=== PATIENT | female | born 1990 | race Hispanic/Latino ===

== ENCOUNTER 2018-08-09 21:19 | Emergency (ER) | payer OTHER ==
[~2018-08-09] VITALS: Ht 180.3 cm; Wt 142.9 kg
--- OUTSIDE RECORDS SUMMARY | 2018-08-09 21:22 | XMS REPORT | Clinical Summary ---
Author Author [facility] Organization [facility] Address Unknown Phone Unavailable Care Team Providers Care Store Leader Name Role Phone PCP Unavailable Allergies No Known Allergies Medications No known medications Active Problems Problem Noted Date Acute left ankle pain 07/20/2015 Back pain with radiation 05/13/2010 UTI (lower urinary tract infection) 05/13/2010 Encounters Care Team Description Date Type Specialty Alan Mcmullen MD 04/06/2018 Emergency Emergency Medicine 04/06/2018 Travel after 04/15/2017 Social History Date Tobacco Use Types Packs/Day Years Used Never Assessed Sex Assigned at Date Recorded Not on file Industry Job Start Date Occupation Not on file Not on file Not on file Travel End Travel History Travel Start No recent travel history available. Last Filed Vital Signs Time Taken Vital Sign Reading 04/06/2018 2:50 PM QUALITY ASSURANCE MONITOR BODY Blood Pressure 120/81 04/06/2018 2:50 PM QUALITY ASSURANCE MONITOR BODY Pulse 78 04/06/2018 2:50 PM QUALITY ASSURANCE MONITOR BODY Temperature 36.4 C (97.6 F) 04/06/2018 2:50 PM QUALITY ASSURANCE MONITOR BODY Respiratory Rate 16 04/06/2018 2:50 PM QUALITY ASSURANCE MONITOR BODY Oxygen Saturation 100% - Inhaled Oxygen - Concentration 04/06/2018 2:50 PM QUALITY ASSURANCE MONITOR BODY Weight 147 kg (324 lb) - Height - - Body Mass Index - Plan of Treatment Health Maintenance Due Date Last Done Comments Cervical Cancer Scrn (3 2013 Yrs) IMM Influenza Seasonal 12/06/2017 Oct to May (>/=19 yrs) Results Not on fileafter 04/15/2017 Insurance Type Payer Benefit Subscriber ID Effective Phone Address Plan / Dates Group [facility] SELF-PAY [facility] xxxxxxxxx 2015- [phone] [address] [place] [address]
--- OUTSIDE RECORDS SUMMARY | 2018-08-09 21:22 | XMS REPORT | Clinical Summary ---
Author Author [facility] Organization [facility] Address Unknown Phone Unavailable Care Team Providers Care Mud Worker Name Role Phone PCP Unavailable Allergies No Known Allergies Medications No known medications Active Problems Problem Noted Date Acute left ankle pain 07/20/2015 Back pain with radiation 05/13/2010 UTI (lower urinary tract infection) 05/13/2010 Encounters Care Team Description Date Type Specialty Alan Mcmullen MD 04/06/2018 Emergency Emergency Medicine 04/06/2018 Travel after 04/26/2017 Social History Date Tobacco Use Types Packs/Day Years Used Never Assessed Sex Assigned at Date Recorded Not on file Industry Job Start Date Occupation Not on file Not on file Not on file Travel End Travel History Travel Start No recent travel history available. Last Filed Vital Signs Time Taken Vital Sign Reading 04/06/2018 2:50 PM COFFEE ATTENDANT Blood Pressure 120/81 04/06/2018 2:50 PM COFFEE ATTENDANT Pulse 78 04/06/2018 2:50 PM COFFEE ATTENDANT Temperature 36.4 C (97.6 F) 04/06/2018 2:50 PM COFFEE ATTENDANT Respiratory Rate 16 04/06/2018 2:50 PM COFFEE ATTENDANT Oxygen Saturation 100% - Inhaled Oxygen - Concentration 04/06/2018 2:50 PM COFFEE ATTENDANT Weight 147 kg (324 lb) - Height - - Body Mass Index - Plan of Treatment Health Maintenance Due Date Last Done Comments Cervical Cancer Scrn (3 2013 Yrs) IMM Influenza Seasonal 12/06/2017 Oct to May (>/=19 yrs) Results Not on fileafter 04/26/2017 Insurance Type Payer Benefit Subscriber ID Effective Phone Address Plan / Dates Group [facility] SELF-PAY [facility] xxxxxxxxx 2015- [phone] [address] [place] [address] [employer] SELF-PAY [facility] PLAN xxxxxx 2018-8 [address] [place] [address] (Home) [place] [address]
--- OUTSIDE RECORDS SUMMARY | 2018-08-09 21:22 | XMS REPORT | Continuity of Care Document ---
Author Author [facility] Interface Address Unknown Phone Unavailable Problems Problem Status Onset Date Classification Date Reported Comments Source Acute left ankle pain Active 07/20/2015 04/28/2018 [facility] Back pain with radiation Active 05/13/2010 04/28/2018 [facility] UTI Active 05/13/2010 04/28/2018 [facility] Medications Medication Details Route Status Patient Instructions Ordering Provider Order Date Source Allergies, Adverse Reactions, Alerts Substance Category Reaction Severity Reaction type Status Date Reported Comments Source Immunizations Immunization Date Given Site Status Last Updated Comments Source Results Order Name Results Value Reference Range Date Interpretation Comments Source Vital Signs Vital Sign Value Date Comments Source Systolic (mm Hg) 120 04/06/2018 [facility] Diastolic (mm Hg) 81 04/06/2018 [facility] Heart Rate 78 04/06/2018 [facility] Temperature Oral (F) 36.44 Lora 04/06/2018 [facility] Respitory Rate 16 04/06/2018 [facility] Weight 146.965 04/06/2018 [facility] Encounters Location Location Details Encounter Type Encounter Number Reason For Visit Attending Provider ADM Date DC Date Status Source Travel [id number] 04/06/2018 [facility] Emergency [id number] Alan Mcmullen MD 04/06/2018 04/06/2018 [facility] Procedures Procedure Code Date Perfomer Comments Source
--- OUTSIDE RECORDS SUMMARY | 2018-08-09 21:22 | XMS REPORT | Clinical Summary ---
Author Author [facility] Organization [facility] Address Unknown Phone Unavailable Care Team Providers Care Director [employer] Name Role Phone PCP Unavailable Allergies No Known Allergies Medications No known medications Active Problems Problem Noted Date Acute left ankle pain 07/20/2015 Back pain with radiation 05/13/2010 UTI (lower urinary tract infection) 05/13/2010 Encounters Care Team Description Date Type Specialty Alan Mcmullen MD 04/06/2018 Emergency Emergency Medicine 04/06/2018 Travel after 04/11/2017 Social History Date Tobacco Use Types Packs/Day Years Used Never Assessed Sex Assigned at Date Recorded Not on file Industry Job Start Date Occupation Not on file Not on file Not on file Travel End Travel History Travel Start No recent travel history available. Last Filed Vital Signs Time Taken Vital Sign Reading 04/06/2018 2:50 PM SPEAKER WIRER Blood Pressure 120/81 04/06/2018 2:50 PM SPEAKER WIRER Pulse 78 04/06/2018 2:50 PM SPEAKER WIRER Temperature 36.4 C (97.6 F) 04/06/2018 2:50 PM SPEAKER WIRER Respiratory Rate 16 04/06/2018 2:50 PM SPEAKER WIRER Oxygen Saturation 100% - Inhaled Oxygen - Concentration 04/06/2018 2:50 PM SPEAKER WIRER Weight 147 kg (324 lb) - Height - - Body Mass Index - Plan of Treatment Health Maintenance Due Date Last Done Comments Cervical Cancer Scrn (3 2013 Yrs) IMM Influenza Seasonal 12/06/2017 Oct to May (>/=19 yrs) Results Not on fileafter 04/11/2017 Insurance Type Payer Benefit Subscriber ID Effective Phone Address Plan / Dates Group [facility] SELF-PAY [facility] xxxxxxxxx 2015- [phone] [address] [place] [address]
--- OUTSIDE RECORDS SUMMARY | 2018-08-09 21:22 | XMS REPORT | Clinical Summary ---
Author Author [facility] Organization [facility] Address Unknown Phone Unavailable Care Team Providers Care Electric Meter Installer Name Role Phone PCP Unavailable Allergies Not on File Medications Not on file Active Problems Not on file Social History Date Tobacco Use Types Packs/Day Years Used Never Assessed Sex Assigned at Date Recorded Not on file Industry Job Start Date Occupation Not on file Not on file Not on file Travel End Travel History Travel Start No recent travel history available. Last Filed Vital Signs Not on file Plan of Treatment Not on file Results Not on fileafter 08/08/2017
--- OUTSIDE RECORDS SUMMARY | 2018-08-09 21:22 | XMS REPORT | Clinical Summary ---
Author Author [facility] Organization [facility] Address Unknown Phone Unavailable Care Team Providers Care Makeup Artist Name Role Phone PCP Unavailable Allergies No Known Allergies Medications No known medications Active Problems Problem Noted Date Acute left ankle pain 07/20/2015 Back pain with radiation 05/13/2010 UTI (lower urinary tract infection) 05/13/2010 Encounters Care Team Description Date Type Specialty Alan Mcmullen MD 04/06/2018 Emergency Emergency Medicine 04/06/2018 Travel after 08/08/2017 Social History Date Tobacco Use Types Packs/Day Years Used Never Assessed Sex Assigned at Date Recorded Not on file Industry Job Start Date Occupation Not on file Not on file Not on file Travel End Travel History Travel Start No recent travel history available. Last Filed Vital Signs Reading Time Taken Comments Vital Sign 120/81 04/06/2018 2:50 PM LAUNDRY ROOM ATTENDANT Blood Pressure 78 04/06/2018 2:50 PM LAUNDRY ROOM ATTENDANT Pulse 36.4 C (97.6 F) 04/06/2018 2:50 PM LAUNDRY ROOM ATTENDANT Temperature 16 04/06/2018 2:50 PM LAUNDRY ROOM ATTENDANT Respiratory Rate 100% 04/06/2018 2:50 PM LAUNDRY ROOM ATTENDANT Oxygen Saturation - - Inhaled Oxygen Concentration 147 kg (324 lb) 04/06/2018 2:50 PM LAUNDRY ROOM ATTENDANT Weight - - Height - - Body Mass Index Plan of Treatment Health Maintenance Due Date Last Done Comments Cervical Cancer Scrn (3 2013 Yrs) IMM Influenza Seasonal 12/06/2018 Oct to May (>/=19 yrs) Results Not on fileafter 08/08/2017 Insurance Type Payer Benefit Subscriber ID Effective Phone Address Plan / Dates Group [facility] SELF-PAY SELF-PAY xxxxxxxxx 2015- [phone] [address] [address] [facility] SELF-PAY SELF-PAY xxxxxx 2018-9 [address] [place] [address] (Home) [place] [address]
--- OUTSIDE RECORDS SUMMARY | 2018-08-09 21:22 | XMS REPORT ---
[facility] Address Unknown Phone Unavailable Care Team Providers Care Basting Machine Operator Name Role Phone HILLARY CARTER PP Unavailable Breanna CARTER Unavailable Unavailable AFUWAPE, LUKUMAN Unavailable Unavailable REBECA, IVELISSE Unavailable Unavailable Payers Payer Name Policy Type Policy Number Effective Date Expiration Date Problems This patient has no known problems. Allergies, Adverse Reactions, Alerts Allergy Name Allergy Type Status Severity Reaction(s) Onset Date Inactive Date Treating Clinician Comments No Known Allergies DA Active U 2013-11-28 00:00:00 Medications This patient has no known medications. Encounters Start Date/Time End Date/Time Encounter Type Admission Type Attending Clinicians Care Facility Care Department Encounter ID 2018-04-06 15:26:54 2018-04-06 15:26:54 Emergency [facility] MED [id number] 2017-06-28 09:38:00 2017-06-28 09:38:00 Outpatient [facility] MED [id number] 2017-06-06 00:01:00 2017-06-06 00:01:00 Outpatient [facility] [id number] 2017-06-06 00:01:00 2017-06-06 00:01:00 Outpatient [facility] [id number] 2017-05-14 08:21:00 2017-05-14 08:21:00 Inpatient [facility] MED [id number] 2017-05-11 20:50:00 2017-05-11 20:50:00 Emergency [facility] MED [id number] 2017-05-08 04:01:2017-05-08 04:01:00 Inpatient [facility] [id number] 2017-05-06 00:01:00 2017-05-06 00:01:00 Outpatient [facility] [id number] 2017-05-06 00:01:00 2017-05-06 00:01:00 Outpatient [facility] [id number] 2017-04-22 01:16:00 2017-04-22 01:16:00 Emergency C [facility] [id number] 2017-04-17 13:02:00 2017-04-17 13:02:00 Emergency Eliseo CARTER [facility] [id number] 2017-04-08 00:01:00 2017-04-08 00:01:00 Outpatient [facility] [id number] 2017-04-07 16:20:00 2017-04-07 16:20:00 Emergency Eliseo [facility] [id number] 2017-03-15 13:12:00 2017-03-15 13:12:00 Outpatient [facility] [id number] 2017-02-16 02:51:00 2017-02-16 02:51:00 Emergency Eliseo CARTER [facility] [id number] 2017-02-05 00:01:00 2017-02-05 00:01:00 Outpatient C [facility] [id number] 2017-01-15 10:40:00 2017-01-15 10:40:00 Outpatient C [facility] [id number] 2017-01-15 08:19:00 2017-01-15 08:19:00 Emergency C [facility] [id number] Results Test Description Test Time Test Comments Text Results Atomic Results Result Comments TROPONIN I RAPID 2018-06-23 09:42:00 TROPONIN I RAPID (test code=TROPIRAP) 0.00 ng/mL <0.08 Please Note New Reference Range 0.00-0.079 ng/mL - Negative>or=0.08 ng/mL - Positive The use of serial sampling and testing protocol is arecommended practice.An elevated troponin level alone is often not sufficient fordiagnosis of myocardial infarction. Troponin results obtained by different assays may vary.Evaluation of the extent of myocardial damage based onincrease of troponin would be valid only if similarmethodology is used. BASIC METABOLIC [id number] 22:33:00* Test Item Value Reference Range Comments SODIUM (test code=NA) 139 mmol/L 136-145 POTASSIUM (test code=K) 3.9 mmol/L 3.5-5.1 CHLORIDE (test code=CL) 109.0 mmol/L 98-107 CARBON DIOXIDE (test code=CO2) 23.0 mmol/L 21-32 ANION GAP (test code=GAP) 10.9 10-20 GLUCOSE (test code=GLU) 130 mg/dL 74-106 BLOOD UREA NITROGEN (test code=BUN) 11 mg/dL 7-18 GLOMERULAR FILTRATION RATE (test code=GFR) > 60 mL/min >=60 Estimated GFR by using Modified MDRD formula.Chronic kidney disease is defined as either kidney damageor GFR <60 mL/min/1.73 m2 for >3 months. CREATININE (test code=CREAT) 0.80 mg/dL 0.55-1.02 Note change in reference range due to change in reagent. BUN/CREATININE RATIO (test code=BUN/CREA) 13.8 10-20 CALCIUM (test code=CA) 8.9 mg/dL 8.5-10.1 HCG SERUM [id number] 22:33:00* Test Item Value Reference Range Comments HCG SERUM QUAL (test code=HCGQL) NEGATIVE NEGATIVE This HCGQL test is NOT applicable for MALE patients.Check with nurse about probable order error.If Tumor Marker Test needed, nurse should order test "HCGTU"(Test #550.74469) [id number] 22:33:00* Test Item Value Reference Range Comments TROPONIN-I (test code=TROPI) <0.015 ng/mL 0-0.045 BASIC METABOLIC [id number] 22:30:00* Test Item Value Reference Range Comments SODIUM (test code=NA) 139 mmol/L 136-145 POTASSIUM (test code=K) 3.9 mmol/L 3.5-5.1 CHLORIDE (test code=CL) 109.0 mmol/L 98-107 CARBON DIOXIDE (test code=CO2) mmol/L 21-32 ANION GAP (test code=GAP) 10-20 GLUCOSE (test code=GLU) mg/dL 74-106 BLOOD UREA NITROGEN (test code=BUN) mg/dL 7-18 GLOMERULAR FILTRATION RATE (test code=GFR) mL/min >=60 CREATININE (test code=CREAT) mg/dL 0.55-1.02 BUN/CREATININE RATIO (test code=BUN/CREA) 10-20 CALCIUM (test code=CA) 8.9 mg/dL 8.5-10.1 HCG SERUM [id number] 22:30:00* Test Item Value Reference Range Comments HCG SERUM QUAL (test code=HCGQL) NEGATIVE NEGATIVE This HCGQL test is NOT applicable for MALE patients.Check with nurse about probable order error.If Tumor Marker Test needed, nurse should order test "HCGTU"(Test #550.70567) [id number] 22:30:00* Test Item Value Reference Range Comments TROPONIN-I (test code=TROPI) ng/mL 0-0.045 BASIC METABOLIC [id number] 22:25:00* Test Item Value Reference Range Comments SODIUM (test code=NA) 139 mmol/L 136-145 POTASSIUM (test code=K) 3.9 mmol/L 3.5-5.1 CHLORIDE (test code=CL) 109.0 mmol/L 98-107 CARBON DIOXIDE (test code=CO2) mmol/L 21-32 ANION GAP (test code=GAP) 10-20 GLUCOSE (test code=GLU) mg/dL 74-106 BLOOD UREA NITROGEN (test code=BUN) mg/dL 7-18 GLOMERULAR FILTRATION RATE (test code=GFR) mL/min >=60 CREATININE (test code=CREAT) mg/dL 0.55-1.02 BUN/CREATININE RATIO (test code=BUN/CREA) 10-20 CALCIUM (test code=CA) 8.9 mg/dL 8.5-10.1 HCG SERUM [id number] 22:25:00* Test Item Value Reference Range Comments HCG SERUM QUAL (test code=HCGQL) NEGATIVE [id number] 22:25:00* Test Item Value Reference Range Comments TROPONIN-I (test code=TROPI) ng/mL 0-0.045 CBC W/O [id number] 22:18:00* Test Item Value Reference Range Comments WHITE BLOOD CELL (test code=WBC) 9.4 K/mm3 4.5-12.5 RED BLOOD CELL (test code=RBC) 4.11 mill/mm3 3.7-5.2 HEMOGLOBIN (test code=HGB) 12.9 gram/dL 11.5-15.5 HEMATOCRIT (test code=HCT) 38.7 % 36.0-46.0 MEAN CELL VOLUME (test code=MCV) 94.2 fL 80-98 MEAN CELL HGB (test code=MCH) 31.4 picogram 27.0-33.0 MEAN CELL HGB CONCETRATION (test code=MCHC) 33.3 gram/dL 33.0-36.0 RED CELL DISTRIBUTION WIDTH (test code=RDW) 12.5 % 11.6-16.2 PLATELET COUNT (test code=PLT) 212 K/mm3 150-450 MEAN PLATELET VOLUME (test code=MPV) 11.2 fL 6.7-11.0 CBC W/O [id number] 22:11:00* Test Item Value Reference Range Comments WHITE BLOOD CELL (test code=WBC) K/mm3 4.5-12.5 RED BLOOD CELL (test code=RBC) mill/mm3 3.7-5.2 HEMOGLOBIN (test code=HGB) 12.9 gram/dL 11.5-15.5 HEMATOCRIT (test code=HCT) 38.7 % 36.0-46.0 MEAN CELL VOLUME (test code=MCV) fL 80-98 MEAN CELL HGB (test code=MCH) picogram 27.0-33.0 MEAN CELL HGB CONCETRATION (test code=MCHC) gram/dL 33.0-36.0 RED CELL DISTRIBUTION WIDTH (test code=RDW) % 11.6-16.2 PLATELET COUNT (test code=PLT) K/mm3 150-450 MEAN PLATELET VOLUME (test code=MPV) fL 6.7-11.0 - XR CHEST 1 [id number] 22:08:00 FAX: Sharita Quinones [place]: B St: PRE Name: TRUDY FORD [facility] : [birth year] Age/S: 28/F [address] Unit #: [id number] Loc: [place] [address] Phys: Sharita Quinones ie [employer] Acct: [id number] Dis Date: Status: PRE ER PHONE #: [phone] Exam Date: 06/22/20182201 FAX #: [phone] Reason: CHEST PAIN EXAMS: CPT CODE: [id number] XR CHEST 1 V 61103 REASON FOR EXAM: CHEST PAIN EXAM ORDER DATE: 06/22/2018 9:11 PM Ordering Juaquin: Sharita Quinones NP PROCEDURE: - XR CHEST 1 V COMPARISON: 06/18/2018 FINDINGS: Portable AP frontal view of the chest obtained at 9:59 PM shows clear lungs without evidence of consolid ation. There is no evidence of effusion. The heart size is within normal l imits. Pulmonary vasculatures are unremarkable. IMPRESSIO N: No active disease. Electronically Signed by Juaquin Wilson on 06/22 at 2208 Reported and signed by: Ubaldo Wilson M.D. CC: Sharita Quinones NP chnologist: Rosie Harris) Trnscrd Date/ Time/By: 06/22/2018 (2207) : By: Memo Orig Print D/T: S: 06/23/19 (5742) PAGE 1 Signed Report - CTA [id number] 05:08:00 Name: TRUDY FINCH [facility] : 1990 Age/S: 28 / F [address] Unit #: [id number] Loc: [place] [address] Phys: RAFAL FINNEGAN MD Acct: [id number] Dis Date: Status: REG ER PHONE #: [phone] Exam Date: 06/18/2018 033 FAX #: [phone] Reason: Suddden onset of severe HENRY EXAMS: CPT CODE: [id number] CTA HEAD 06279 AFTER HOURS SERVICE ON: 06/18/2018 5:[address] Angiography of the Brain With Contrast Location Code M12 History: Sudden onset of severe HENRY Technique: Axial source data of the [place] are performed post administration of intravenous contrast. One or more of the following dose reduction techniques were used: Automated exposure control, adjustment of the mA and/or kV according to patient size, and/or utiliza tion of iterative reconstruction technique. Findings: The anterior circulation is unremarkable, including the anterior communicating artery. The petrous, cavernous and supraclinoid segments of the internal carotid arteries are patent. Posterior circulation is unremarkable. The basilar artery and vertebral arteries are patent. T here is vertebral artery dominance. There is no evidence of aneur ysm or vascular malformation. Impression: Unr emarkable intracranial CTA. at 0508 Reported and signed by: Stefano Dillard M.D. CC: RAFAL FINNEGAN MD Technologist:MICHAEL OCAMPO RT; Connor Barr CTDI: DLP: Trnscb Date/Time: 06/18/2018 (507) [email or web address] Orig Print D/T: S: 06/18/2018 (0511) CTDI: DLP: PAGE 1 Signed Report BASIC METABOLIC [id number] 03:05:00* Test Item Value Reference Range Comments SODIUM (test code=NA) 140 mmol/L 136-145 POTASSIUM (test code=K) 3.9 mmol/L 3.5-5.1 CHLORIDE (test code=CL) 108.0 mmol/L 98-107 CARBON DIOXIDE (test code=CO2) 24.0 mmol/L 21-32 ANION GAP (test code=GAP) 11.9 10-20 GLUCOSE (test code=GLU) 130 mg/dL 74-106 BLOOD UREA NITROGEN (test code=BUN) 13 mg/dL 7-18 GLOMERULAR FILTRATION RATE (test code=GFR) > 60 mL/min >=60 Estimated GFR by using Modified MDRD formula.Chronic kidney disease is defined as either kidney damageor GFR <60 mL/min/1.73 m2 for >3 months. CREATININE (test code=CREAT) 1.00 mg/dL 0.55-1.02 Note change in reference range due to change in reagent. BUN/CREATININE RATIO (test code=BUN/CREA) 13.0 10-20 CALCIUM (test code=CA) 8.3 mg/dL 8.5-10.1 [id number] 03:05:00* Test Item Value Reference Range Comments TROPONIN-I (test code=TROPI) <0.015 ng/mL 0-0.045 - CT HEAD/BRAIN W/O [id number] 02:59:00 Name: TRUDY FINCH [facility] : 1990 Age/S: 28 / F [address] [facility] Unit #: [id number] Loc: [place] [address] Phys: RAFAL FINNEGAN MD Acct: [id number] Dis Date: Status: REG ER PHONE #: [phone] Exam Date: 06/18/2018 0230 FAX #: [phone] Reason: headache EXAMS: CPT CODE: [id number] CT HEAD/BRAIN W/O CONT 60454 AFTER HOURS SERVICE ON: 06/18/2018 2:[address] Scan of the Brain Without Contrast Location Code M12 History: headache Technique: Scans were performed on a helical scanner pre IV contrast only. The study is limited secondary to lack of intravenous contrast, particularly for evaluation of masses. One or more of the following dose reduction techniques were used: Automated exposure control, adjustment of the mA and/or kV according to patient size, and/or utilization of iterative reconstruction technique. Findings: There is no hydrocephalus. Basal cisterns are patent. There is no intracranial hyperdense hemorrhage. There is no midline shift or mass effect. No effacement of the randall-white matter junction to indicate acute infarction. Mucous retention cysts are seen in the maxillary sinuses. There is no skull fracture. Impression: No acute intracranial CT findings. 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 Jagruti ctronically Signed by Stefano Dillard M.D. on at 0259 Reported and signed by: Bautista Dillard M.D. CC: RAFAL FINNEGAN MD Technologist:RT JESUS CTDI: DLP: Trnscb Date/Time: 06/18/2018 (258) [email or web address] Orig Print D/T: S: 06/18/2018 (030) CTDI: DLP: PAGE 1 Signed Report - XR CHEST 1 [id number] 02:59:00 FAX: Arturo Laird NP [phone] [place]: St: REG Name: TRUDY FORD [facility] : [birth year] Age/S: 28/F [address] [facility] Unit #: [id number] Loc: [place] [address] Phys: Arturo Laird NP Acct: [id number] Dis Date: Status: REG ER PHONE #: [phone] Exam Date: 06/18/2018 023 FAX #: [phone] Reason: CHEST PAIN EXAMS: CPT CODE: [id number] XR CHEST 1 V 53968 AFTER HOURS SERVICE ON: 06/18/2018 2:59 AM AP Portable Chest Location Code M12 HISTORY: CHEST PAIN FINDINGS: There are no in filtrates. There are no pleural effusions. There is no pneumothorax. Cardi ac silhouette and mediastinum appear within normal limits. IMPRESSION: No active pulmonary findings. at 0259 Reported and signed by: Stefano Dillard M.D. CC: Arturo Laird NP Technologist: Reyna Cisneros Date/Time/By: 06/18/2018 (025) : By: [email or web address] Orig Print D/T: S: 06/18/2018 (149) PAGE 1 Signed Report - XR SHOULDER 2 + V RT 2018-06-18 02:57:00 FAX: RAFAL FINNEGAN MD [place]: St: REG Name: TRUDY FORD [facility] : [birth year] Age/S: 28/F [address] [facility] Unit #: [id number] Loc: [place] [address] Phys: RAFAL FINNEGAN MD Acct: [id number] Dis Date: Status: REG ER PHONE #: [phone] Exam Date: 06/18/2018 0232 FAX #: [phone] Reason: arm pain EXAMS: CPT CODE: [id number] XR SHOULDER 2 + [place] RT [address]37 AFTER HOURS SERVICE ON: 06/18/2018 2:57 AM Right Shoulder, 3 Views Location Code M12 History: arm pain Findings: There is nor mal anatomic alignment. No fracture or dislocation is seen. Glenohumeral joint is within normal limits. Acromioclavicular joint is unremarkable. Impression: Unremarkable shoulder radiograph. at 0257 Rep orted and signed by: Stefano Dillard M.D. CC: HALLE FINNEGAN MD Technologist: Reyna Cisnerosrd Date/Time/By: 06/18/2018 (025) : By: [email or web address] Orig Print D/T: S: 06/18/2018 (362) PAGE 1 Signed Report BASIC METABOLIC [id number] 02:49:00* Test Item Value Reference Range Comments SODIUM (test code=NA) 140 mmol/L 136-145 POTASSIUM (test code=K) 3.9 mmol/L 3.5-5.1 CHLORIDE (test code=CL) 108.0 mmol/L 98-107 CARBON DIOXIDE (test code=CO2) mmol/L 21-32 ANION GAP (test code=GAP) 10-20 GLUCOSE (test code=GLU) mg/dL 74-106 BLOOD UREA NITROGEN (test code=BUN) mg/dL 7-18 GLOMERULAR FILTRATION RATE (test code=GFR) mL/min >=60 CREATININE (test code=CREAT) mg/dL 0.55-1.02 BUN/CREATININE RATIO (test code=BUN/CREA) 10-20 CALCIUM (test code=CA) mg/dL 8.5-10.1 [id number] 02:49:00* Test Item Value Reference Range Comments TROPONIN-I (test code=TROPI) ng/mL 0-0.045 CBC W/O [id number] 02:37:00* Test Item Value Reference Range Comments WHITE BLOOD CELL (test code=WBC) 6.7 K/mm3 4.5-12.5 RED BLOOD CELL (test code=RBC) 3.99 mill/mm3 3.7-5.2 HEMOGLOBIN (test code=HGB) 12.5 gram/dL 11.5-15.5 HEMATOCRIT (test code=HCT) 37.9 % 36.0-46.0 MEAN CELL VOLUME (test code=MCV) 95.0 fL 80-98 MEAN CELL HGB (test code=MCH) 31.3 picogram 27.0-33.0 MEAN CELL HGB CONCETRATION (test code=MCHC) 33.0 gram/dL 33.0-36.0 RED CELL DISTRIBUTION WIDTH (test code=RDW) 12.4 % 11.6-16.2 PLATELET COUNT (test code=PLT) 227 K/mm3 150-450 MEAN PLATELET VOLUME (test code=MPV) 11.2 fL 6.7-11.0 UR HCG [id number] 02:36:00* Test Item Value Reference Range Comments UR HCG QUAL (test code=HCGQLU) NEGATIVE This HCGQL test is NOT applicable for MALE patients.Check with nurse about probable order error.If Tumor Marker Test needed, nurse should order test "HCGTU"(Test #550.63960) CBC W/O [id number] 02:31:00* Test Item Value Reference Range Comments WHITE BLOOD CELL (test code=WBC) K/mm3 4.5-12.5 RED BLOOD CELL (test code=RBC) mill/mm3 3.7-5.2 HEMOGLOBIN (test code=HGB) 12.5 gram/dL 11.5-15.5 HEMATOCRIT (test code=HCT) 37.9 % 36.0-46.0 MEAN CELL VOLUME (test code=MCV) fL 80-98 MEAN CELL HGB (test code=MCH) picogram 27.0-33.0 MEAN CELL HGB CONCETRATION (test code=MCHC) gram/dL 33.0-36.0 RED CELL DISTRIBUTION WIDTH (test code=RDW) % 11.6-16.2 PLATELET COUNT (test code=PLT) K/mm3 150-450 MEAN PLATELET VOLUME (test code=MPV) fL 6.7-11.0 CT Brain/Head w/o [id number] 04:33:09Patient: TRUDY FINCH Date/Time04/04/2018 04:16 CSTReason for ExamHeadache(s)ReportExam: CT of the brain without contrast.History: HeadacheLocation: F61Dreogxutt: Contiguous axial CT images were obtained from the skull base through the vertex without contrast .Comparison: None availableFindings:The ventricles and sulci are normal in size and symmetric. The basal cisterns are patent. There is no mass effect or midline shift. There is no acute intracranial hemorrhage. There are no extra-axial flu id collections.Paranasal sinuses and mastoid air cells are clear with the except ion of polypoid mucosal thickening within the bilateral maxillary sinuses..Impre ssion:No CT evidence of an acute intracranial hemorrhage or significant mass eff ect Final Dictated by: MD Favio, SaniaDictated DT/TM: 04/04 4:31 amSigned by: MD Favio, SaniaSigned (Electronic Signature): 04/04/2018 4:33 [facility] w/o [id number] 22:29:13Patient: TRUDY FINCH Date/Time03/20/2018 22:23 CSTReason for Examneck pain;Pain (please specify)Rep ortCT Spine Cervical w/o ContrastLocation:C5Ptrxq hours services provided 019 10:28 PMIndication:Pain (please specify);neck painComparison:None availableT echnique: Axial CT images were acquired through the cervical spine without contr ast. Sagittal and coronal reformatted images are provided for interpretation. Al l CT scans at this facility use dose modulation, iterative reconstruction, and/o r weight-based dosing when appropriate to reduce radiation dose to as low as ramonita sonably achievable.Findings:Mild straightening of the normal cervical lordosis i s identified with preservation of vertebral body alignment. Intervertebral disc spaces and vertebral body heights appear normal. The prevertebral soft tissues a re normal in thickness. The odontoid and lateral masses of C1 are symmetric. Spi nous process and facets are well aligned.Impression: No acute fracture or disloc ation. Final Dictated by: MD Grant Dennis PDictated DT/TM: 10:28 pmSigned by: MD Rudy, Cr PSimaryuri (Electronic Signature): 03/20/2018 10:29 pmXR Shoulder Complete 2+ Views [id number] 21:55:23 Patient: TRUDY FINCH am Date/Time11/28/2017 21:46 CDTReason for Examchronic pain;Pain (please specify) ReportLOCATION: [id number]: 27-year-old female with right shoulder pain.COMMENT: Frontal radiographs of the patient's right shoulder were obtained with the humer us in external and internal rotation. A scapular Y-view was included.The skeleto n is intact, and normally mineralized. The glenohumeral joint space and acromioc lavicular joint space are within normal limits. The soft tissues are unremarkabl e.IMPRESSION:Unremarkable radiographic examination of the right shoulder. F inal Dictated by: MD Dwyer Robert LDictated DT/TM: 11/28/2017 9:54 pmS igned by: MD Dwyer Robert LSigned (Electronic Signature): 11/28/2017 9:55 pm POC Glucose, [id number] 07:39:00* Test Item Value Reference Range Comments POC Glucose (test code=POCGLUC) 99 mg/dL 70-115 Notify RN or If you consider your patient critically ill, the Dick Accu-Chek InformII metershould not be used for Glucose determinations.Draw a venous Glucose and send to the Main Lab for Analysis. POC Glucose, [id number] 23:45:00* Test Item Value Reference Range Comments POC Glucose (test code=POCGLUC) 91 mg/dL 70-115 If you consider your patient critically ill, the Dick Accu-Chek InformII metershould not be used for Glucose determinations.Draw a venous Glucose and send to the Main Lab for Analysis. POC Glucose, [id number] 17:29:00* Test Item Value Reference Range Comments POC Glucose (test code=POCGLUC) 102 mg/dL 70-115 If you consider your patient critically ill, the Dick Accu-Chek InformII metershould not be used for Glucose determinations.Draw a venous Glucose and send to the Main Lab for Analysis. POC Glucose, [id number] 12:49:00* Test Item Value Reference Range Comments POC Glucose (test code=POCGLUC) 124 mg/dL 70-115 If you consider your patient critically ill, the Dick Accu-Chek InformII metershould not be used for Glucose determinations.Draw a venous Glucose and send to the Main Lab for Analysis. POC Glucose, [id number] 07:52:00* Test Item Value Reference Range Comments POC Glucose (test code=POCGLUC) 149 mg/dL 70-115 If you consider your patient critically ill, the Dick Accu-Chek InformII metershould not be used for Glucose determinations.Draw a venous Glucose and send to the Main Lab for Analysis. POC Glucose, [id number] 23:14:00* Test Item Value Reference Range Comments POC Glucose (test code=POCGLUC) 127 mg/dL 70-115 If you consider your patient critically ill, the Dick Accu-Chek InformII metershould not be used for Glucose determinations.Draw a venous Glucose and send to the Main Lab for Analysis. Hemogram [id number] 17:05:00* Test Item Value Reference Range Comments WBC (test code=WBC) 8.7 K/cumm 4.4-10.5 RBC (test code=RBC) 3.58 M/cumm 3.75-5.20 Hemoglobin (test code=HGB) 10.6 g/dL 12.2-14.8 Hematocrit (test code=HCT) 30.7 % 36.5-44.4 MCV (test code=MCV) 85.9 fL 80.0-100.0 MCH (test code=MCH) 29.8 pg 27.0-32.5 MCHC (test code=MCHC) 34.7 g/dL 32.0-37.5 RDW (test code=RDW) 13.5 % 11.5-14.5 Platelet Count (test code=PLTCT) 193 K/cumm 140-440 MPV (test code=MPV) 9.0 fL POC Glucose, [id number] 16:28:00* Test Item Value Reference Range Comments POC Glucose (test code=POCGLUC) 135 mg/dL 70-115 If you consider your patient critically ill, the Dick Accu-Chek InformII metershould not be used for Glucose determinations.Draw a venous Glucose and send to the Main Lab for Analysis. POC Glucose, [id number] 11:17:00* Test Item Value Reference Range Comments POC Glucose (test code=POCGLUC) 131 mg/dL 70-115 If you consider your patient critically ill, the Dick Accu-Chek InformII metershould not be used for Glucose determinations.Draw a venous Glucose and send to the Main Lab for Analysis. POC Glucose, [id number] 07:41:00* Test Item Value Reference Range Comments POC Glucose (test code=POCGLUC) 118 mg/dL 70-115 If you consider your patient critically ill, the Dick Accu-Chek InformII metershould not be used for Glucose determinations.Draw a venous Glucose and send to the Main Lab for Analysis. POC Glucose, [id number] 05:38:00* Test Item Value Reference Range Comments POC Glucose (test code=POCGLUC) 77 mg/dL 70-115 If you consider your patient critically ill, the Dick Accu-Chek InformII metershould not be used for Glucose determinations.Draw a venous Glucose and send to the Main Lab for Analysis. POC Glucose, [id number] 05:33:00* Test Item Value Reference Range Comments POC Glucose (test code=POCGLUC) 153 mg/dL 70-115 Repeat TestIf you consider your patient critically ill, the Dick Accu-Chek InformII metershould not be used for Glucose determinations.Draw a venous Glucose and send to the Main Lab for Analysis. POC Glucose, [id number] 03:51:00* Test Item Value Reference Range Comments POC Glucose (test code=POCGLUC) 52 mg/dL 70-115 Db specimenBABY BOYIf you consider your patient critically ill, the Dick Accu-Chek InformII metershould not be used for Glucose determinations.Draw a venous Glucose and send to the Main Lab for Analysis. Blood Gas+pH+[id number] 03:25:00* Test Item Value Reference Range Comments pH, Blood Gas (test code=BGPH) 7.264 pH Units pCO2 (test code=PCO2) 59.7 mm Hg Bicarbonate (test code=HCO3) 27.0 Base Excess (test code=BE) -1.7 mmol/L tHB (test code=RTHB) 17.8 gm/dL Hematocrit, Blood Gas (test code=BGHCT) 54.7 % Patient Temperature (test code=PTTEMP) 37.0 Degrees Celcius Puncture Site (test code=PUNSITE) Umbilical Drawing Tech ID (test code=DRAWTECH) dr nelson carter Respiratory Rate (test code=RESP RATE) 0 POC Glucose, [id number] 03:03:00* Test Item Value Reference Range Comments POC Glucose (test code=POCGLUC) 122 mg/dL 70-115 If you consider your patient critically ill, the Dick Accu-Chek InformII metershould not be used for Glucose determinations.Draw a venous Glucose and send to the Main Lab for Analysis. POC Glucose, [id number] 02:08:00* Test Item Value Reference Range Comments POC Glucose (test code=POCGLUC) 116 mg/dL 70-115 NO ACTION REQUIREDIf you consider your patient critically ill, the Dick Accu-Chek InformII metershould not be used for Glucose determinations.Draw a venous Glucose and send to the Main Lab for Analysis. POC Glucose, [id number] 01:01:00* Test Item Value Reference Range Comments POC Glucose (test code=POCGLUC) 112 mg/dL 70-115 If you consider your patient critically ill, the Dick Accu-Chek InformII metershould not be used for Glucose determinations.Draw a venous Glucose and send to the Main Lab for Analysis. POC Glucose, [id number] 23:23:00* Test Item Value Reference Range Comments POC Glucose (test code=POCGLUC) 97 mg/dL 70-115 If you consider your patient critically ill, the Dick Accu-Chek InformII metershould not be used for Glucose determinations.Draw a venous Glucose and send to the Main Lab for Analysis. POC Glucose, [id number] 21:20:00* Test Item Value Reference Range Comments POC Glucose (test code=POCGLUC) 87 mg/dL 70-115 If you consider your patient critically ill, the Dick Accu-Chek InformII metershould not be used for Glucose determinations.Draw a venous Glucose and send to the Main Lab for Analysis. POC Glucose, [id number] 20:17:00* Test Item Value Reference Range Comments POC Glucose (test code=POCGLUC) 118 mg/dL 70-115 If you consider your patient critically ill, the Dick Accu-Chek InformII metershould not be used for Glucose determinations.Draw a venous Glucose and send to the Main Lab for Analysis. RPR, [id number] 17:45:00* Test Item Value Reference Range Comments RPR (test code=RPR) Non-Reactive Non-Reactive POC Glucose, [id number] 17:18:00* Test Item Value Reference Range Comments POC Glucose (test code=POCGLUC) 109 mg/dL 70-115 If you consider your patient critically ill, the Dick Accu-Chek InformII metershould not be used for Glucose determinations.Draw a venous Glucose and send to the Main Lab for Analysis. Hep B Surface [id number] 16:07:00* Test Item Value Reference Range Comments Hep Bs Ag (test code=HBSAG) Nonreactive Non-Reactive POC Glucose, [id number] 15:52:00* Test Item Value Reference Range Comments POC Glucose (test code=POCGLUC) 102 mg/dL 70-115 If you consider your patient critically ill, the Dick Accu-Chek InformII metershould not be used for Glucose determinations.Draw a venous Glucose and send to the Main Lab for Analysis. CBC LD with [id number] 15:45:00* Test Item Value Reference Range Comments WBC (test code=WBC) 6.2 K/cumm 4.4-10.5 RBC (test code=RBC) 3.59 M/cumm 3.75-5.20 Hemoglobin (test code=HGB) 10.6 g/dL 12.2-14.8 Hematocrit (test code=HCT) 31.3 % 36.5-44.4 MCV (test code=MCV) 87.1 fL 80.0-100.0 MCH (test code=MCH) 29.6 pg 27.0-32.5 MCHC (test code=MCHC) 34.0 g/dL 32.0-37.5 RDW (test code=RDW) 13.8 % 11.5-14.5 Platelet Count (test code=PLTCT) 218 K/cumm 140-440 MPV (test code=MPV) 9.8 fL Diff Method (test code=DIFFM) Auto Neutrophil (test code=NEUT) 60.9 % 36.0-70.0 Lymphocyte (test code=LYMPH) 28.7 % 12.0-44.0 Monocyte (test code=MONO) 7.6 % 0.0-11.0 Eosinophil (test code=EOS) 2.5 % 0.0-7.0 Basophil (test code=BASO) 0.3 % 0.0-2.0 Neutro Abs (test code=ANEUT) 3.8 K/cumm 1.6-7.4 Lymph Abs (test code=ALYMPH) 1.8 K/cumm 0.5-4.6 Evangeline Abs (test code=AMONO) 0.5 K/cumm 0.0-1.2 Eos Abs (test code=AEOS) 0.2 K/cumm 0.0-0.7 Baso Abs (test code=ABASO) 0.0 K/cumm 0.0-0.2 POC Glucose, [id number] 13:19:00* Test Item Value Reference Range Comments POC Glucose (test code=POCGLUC) 96 mg/dL 70-115 If you consider your patient critically ill, the Dick Accu-Chek InformII metershould not be used for Glucose determinations.Draw a venous Glucose and send to the Main Lab for Analysis. Culture, Vaginal Strep [id number] 09:22:00Specimen: VaginaCollected: 05/05/2017 09:10 Status: Final Last Updated: 05/08/2017 09:22 Culture Result (Final) (Final) 05/07/17 No Group B Strep isolated at 24 hours 05/08/17 No Group B Strep isolated at 48 hours POC Glucose, [id number] 04:48:00* Test Item Value Reference Range Comments POC Glucose (test code=POCGLUC) 137 mg/dL 70-115 Notify RN or MDIf you consider your patient critically ill, the Dick Accu-Chek InformII metershould not be used for Glucose determinations.Draw a venous Glucose and send to the Main Lab for Analysis. POC Glucose, [id number] 09:11:00* Test Item Value Reference Range Comments POC Glucose (test code=POCGLUC) 132 mg/dL 70-115 If you consider your patient critically ill, the Dick Accu-Chek InformII metershould not be used for Glucose determinations.Draw a venous Glucose and send to the Main Lab for Analysis. 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 Gram negative rods Urinalysis [id number] 19:28:00* Test Item Value Reference Range Comments Color (test code=COLOR) Yellow Yellow,Straw,Pl yellow Clarity (test code=CLAR) Clear Clear Specific Rhod[place] (test code=SPGR) 1.012 1.001-1.035 pH (test code=PH) 7.0 5.0-9.0 Ketone (test code=KET) 50 mg/dL Negative Glucose (test code=GLUCUR) Negative mg/dL Negative Protein (test code=PROT) Negative mg/dL Negative Bilirubin (test code=BILI) Negative mg/dL Negative Occult Blood (test code=UDOB) Negative Negative Urobilinogen (test code=UROB) 0.2 mg/dL 0.2-1.0 Nitrite (test code=NIT) Negative Negative Leuk Esterase (test code=LEUK) Small Negative Micros Exam (test code=MEXAM) Indicated Epithelial Cells (test code=EPI) 20-29 /LPF 0-30 WBC, Urine (test code=UWBC) 0-5 /HPF 0-5 RBC, Urine (test code=URBC) 0-3 /HPF 0-5 Bacteria (test code=BACT) Few /HPF Comprehensive Metabolic [id number] 17:44:00* Test Item Value Reference Range Comments Sodium (test code=NA) 133 mmol/L 135-145 Potassium (test code=K) 3.6 mmol/L 3.5-5.1 Chloride (test code=CL) 101 mmol/L 98-105 Carbon Dioxide (test code=CO2) 21 mmol/L 22-29 Glucose (test code=GLU) 85 mg/dL 70-115 Blood Urea Nitrogen (test code=BUN) 5 mg/dL 6-20 Creatinine (test code=CREAT) 0.5 mg/dL 0.5-0.9 Calcium (test code=CA) 8.7 mg/dL 8.3-10.5 Prot Total (test code=TP) 6.1 g/dL 6.4-8.3 Albumin (test code=ALB) 3.1 g/dL 3.5-5.2 A/G Ratio (test code=AGRATIO) 1.0 Ratio Globulin (test code=GLOB) 3.0 2.9-3.1 Bili Total (test code=TBIL) 0.6 mg/dL 0.1-0.9 Alk Phos (test code=APHOS) 119 U/L 35-104 AST (test code=AST) 14 U/L 1-32 ALT (test code=ALT) 7 U/L 1-33 BUN/Creatinine Ratio (test code=BCRATIO) 10.0 Anion Gap (test code=AGAP) 11 mmol/L 7-16 Estimated GFR (test code=GFR) >60 mL/min/1.73m2 eGFR (estimated Glomerular Filtration Rate) is an estimated value,calculated from the patient's serum creatinine using the MDRD equation.It is NOT the patient's actual GFR. The eGFR provides a more clinicallyuseful measure of kidney disease than serum creatinine alone.This calculation takes sex and race into account, if the informationis provided. If the race is not provided, and the patient isAfrican-Czech, multiply by 1.212. If sex is not provided, and thepatient is female, multiply by 0.742. Results for patients <18 years ofage have not been validated by the MDRD study and should be interpretedwith caution.eGFR Result Interpretation:eGFR > or=60 is in the Normal RangeeGFR < 60 may mean kidney diseaseeGFR < 15 may mean kidney failureRanges recommended by the National Kidney Foundat ion,http://nkdep.nih.gov CBC with [id number] 17:24:00* Test Item Value Reference Range Comments WBC (test code=WBC) 8.1 K/cumm 4.4-10.5 RBC (test code=RBC) 3.54 M/cumm 3.75-5.20 Hemoglobin (test code=HGB) 10.9 gm/dL 12.2-14.8 Hematocrit (test code=HCT) 29.9 % 36.5-44.4 MCV (test code=MCV) 84.7 fL 80-100 MCH (test code=MCH) 30.9 pg 27.0-32.5 MCHC (test code=MCHC) 36.4 g/dL 32.0-37.5 RDW (test code=RDW) 13.5 % 11.5-14.5 Platelet Count (test code=PLTCT) 224 K/cumm 140-440 MPV (test code=MPV) 11.1 fL Diff Method (test code=DIFFM) Auto Neutrophil (test code=NEUT) 64.2 % 36-70 Lymphocyte (test code=LYMPH) 27.9 % 12-44 Monocyte (test code=MONO) 5.2 % 0-11 Eosinophil (test code=EOS) 2.5 % 0-7 Basophil (test code=BASO) 0.2 % 0-2 Neutro Abs (test code=ANEUT) 5.2 K/cumm 1.6-7.4 Lymph Abs (test code=ALYMPH) 2.3 K/cumm 0.5-4.6 Evangeline Abs (test code=AMONO) 0.4 K/cumm 0.0-1.2 Eos Abs (test code=AEOS) 0.20 K/cumm 0.00-0.74 Baso Abs (test code=ABASO) 0.0 K/cumm 0.00-0.21 Urinalysis [id number] 18:37:00* Test Item Value Reference Range Comments Color (test code=COLOR) Yellow Yellow,Straw,Pl yellow Clarity (test code=CLAR) Clear Clear Specific Rhodell (test code=SPGR) 1.024 1.001-1.035 pH (test code=PH) 6.5 5.0-9.0 Ketone (test code=KET) 50 mg/dL Negative Glucose (test code=GLUCUR) Negative mg/dL Negative Protein (test code=PROT) 25 mg/dL Negative Bilirubin (test code=BILI) See IctoTest mg/dL Negative Occult Blood (test code=UDOB) Negative Negative Urobilinogen (test code=UROB) 4.0 mg/dL 0.2-1.0 Nitrite (test code=NIT) Negative Negative Leuk Esterase (test code=LEUK) Large Negative Ictotest (test code=ICTOTEST) Confirmed Negative Negative,Confirmed Negative Micros Exam (test code=MEXAM) Indicated Epithelial Cells (test code=EPI) 30-49 /LPF 0-30 WBC, Urine (test code=UWBC) 21-30 /HPF 0-5 RBC, Urine (test code=URBC) 0-3 /HPF 0-5 Mucous, Urine (test code=UMUC) Trace /HPF Bacteria (test code=BACT) Few /HPF [id number] 18:22:00* Test Item Value Reference Range Comments Amphetamine (test code=AMPH) Negative Negative For diagnostic purposes only, positive results should always be assessedin conjunctionwith the patient's medical history,clinical examination and otherfindings.To fulfill legal requirements, a more specific alternate chemical methodmust be used inorder to obtain a Confirmed analytical result. GC/MS is the preferred confirmatory method. Barbiturates (test code=IMMANUEL) Negative Negative Benzodiazepine (test code=PHU) Negative Negative Cocaine (test code=COCA) Negative Negative Methadone (test code=MTHD) Negative Negative Opiates (test code=OPIA) Negative Negative PCP (test code=PCP) Negative Negative Propoxyphene (test code=PROPOX) Negative Negative THC (test code=THC) Negative Negative Alcohol, Urine (test code=ETOHU) <0.01 g/dL 0.00-0.01 POC Glucose, [id number] 17:18:00* Test Item Value Reference Range Comments POC Glucose (test code=POCGLUC) 106 mg/dL 70-115 If you consider your patient critically ill, the Dick Accu-Chek InformII metershould not be used for Glucose determinations.Draw a venous Glucose and send to the Main Lab for Analysis. RPR, [id number] 21:41:00* Test Item Value Reference Range Comments RPR (test code=RPR) Non-Reactive Non-Reactive HIV [id number] 21:15:00* Test Item Value Reference Range Comments HIV 1/2 Antibody (test code=HIV1/2AB) Non-Reactive Non-Reactive HIV1/2 Antibody screen result indicates the absence of HIV1 and NMZ5sjokzuxke.However, A Non- Reactive screen result does not rule out exposure orinfection. If an acute infection is suspected, HIV RNA Quantitative is recommended. P24 Antigen (test code=P24) Non-Reactive Non-Reactive P24 Ag screen result indicates the absence of P24 antigen, which is anindicator of HIV-1 acute infection.However, A Non-Reactive screen does not rule out exposure or infection.If acute HIV-1 is suspected, HIV RNA Quantitative is recommended. CBC with [id number] 16:44:00* Test Item Value Reference Range Comments WBC (test code=WBC) 6.8 K/cumm 4.4-10.5 RBC (test code=RBC) 3.23 M/cumm 3.75-5.20 Hemoglobin (test code=HGB) 10.6 gm/dL 12.2-14.8 Hematocrit (test code=HCT) 29.6 % 36.5-44.4 MCV (test code=MCV) 91.6 fL 80-100 MCH (test code=MCH) 32.7 pg 27.0-32.5 MCHC (test code=MCHC) 35.7 g/dL 32.0-37.5 RDW (test code=RDW) 12.8 % 11.5-14.5 Platelet Count (test code=PLTCT) 210 K/cumm 140-440 MPV (test code=MPV) 9.1 fL Diff Method (test code=DIFFM) Auto Neutrophil (test code=NEUT) 65.2 % 36-70 Lymphocyte (test code=LYMPH) 24.9 % 12-44 Monocyte (test code=MONO) 6.8 % 0-11 Eosinophil (test code=EOS) 3.0 % 0-7 Basophil (test code=BASO) 0.2 % 0-2 Neutro Abs (test code=ANEUT) 4.4 K/cumm 1.6-7.4 Lymph Abs (test code=ALYMPH) 1.7 K/cumm 0.5-4.6 Evangeline Abs (test code=AMONO) 0.5 K/cumm 0.0-1.2 Eos Abs (test code=AEOS) 0.20 K/cumm 0.00-0.74 Baso Abs (test code=ABASO) 0.0 K/cumm 0.00-0.21 Urinalysis [id number] 04:20:00* Test Item Value Reference Range Comments Color (test code=COLOR) Yellow Yellow,Straw,Pl yellow Clarity (test code=CLAR) Sl Cloudy Clear Specific Rhod[place] (test code=SPGR) 1.023 1.001-1.035 pH (test code=PH) 6.5 5.0-9.0 Ketone (test code=KET) 5 mg/dL Negative Glucose (test code=GLUCUR) Negative mg/dL Negative Protein (test code=PROT) 25 mg/dL Negative Bilirubin (test code=BILI) Negative mg/dL Negative Occult Blood (test code=UDOB) Trace Negative Urobilinogen (test code=UROB) 1.0 mg/dL 0.2-1.0 Nitrite (test code=NIT) Negative Negative Leuk Esterase (test code=LEUK) Large Negative Micros Exam (test code=MEXAM) Indicated Epithelial Cells (test code=EPI) 30-49 /LPF 0-30 WBC, Urine (test code=UWBC) 20-29 /HPF 0-5 RBC, Urine (test code=URBC) None Seen /HPF 0-5 Bacteria (test code=BACT) Moderate /HPF Glucose Carmen, 3 [id number] 18:01:00* Test Item Value Reference Range Comments Glucose, Fasting (test code=GLUFAST) 113 mg/dL 70-109 Glucose 1Hr (test code=GLU1HR) 185 mg/dL 70-199 Glucose 2Hr (test code=GLU2HR) 132 mg/dL 70-139 Glucose 3Hr (test code=GLU3HR) 93 mg/dL 70-129 Glucose Carmen, 1 [id number] 18:31:00* Test Item Value Reference Range Comments Glucose, Fasting (test code=GLUFAST) NA mg/dL 70-109 Glucose 1Hr (test code=GLU1HR) 145 mg/dL 70-199 Urinalysis [id number] 00:56:00* Test Item Value Reference Range Comments Color (test code=COLOR) Yellow Yellow,Straw,Pl yellow Clarity (test code=CLAR) Clear Clear Specific Rhod[place] (test code=SPGR) 1.028 1.001-1.035 pH (test code=PH) 5.0 5.0-9.0 Ketone (test code=KET) 5 mg/dL Negative Glucose (test code=GLUCUR) Negative mg/dL Negative Protein (test code=PROT) Negative mg/dL Negative Bilirubin (test code=BILI) Negative mg/dL Negative Occult Blood (test code=UDOB) Negative Negative Urobilinogen (test code=UROB) 0.2 mg/dL 0.2-1.0 Nitrite (test code=NIT) Negative Negative Leuk Esterase (test code=LEUK) Moderate Negative Micros Exam (test code=MEXAM) Indicated Epithelial Cells (test code=EPI) 3-5 /LPF 0-30 WBC, Urine (test code=UWBC) 6-10 /HPF 0-5 RBC, Urine (test code=URBC) None Seen /HPF 0-5 Bacteria (test code=BACT) Few /HPF Pap Lb, rfx HPV [id number] 13:15:00* Test Item Value Reference Range Comments DIAGNOSIS: (test qrwf=[id number]) Comment NEGATIVE FOR INTRAEPITHELIAL LESION AND MALIGNANCY.CELLULAR CHANGES ASSOCIATED WITH INFLAMMATION ARE PRESENT. Specimen adequacy: (test [id number]=[id number]) Comment Satisfactory for evaluation. Endocervical and/or squamous metaplasticcells (endocervical component) are present. Performed by: (test fecs=[id number]) Comment Esme Bo, [employer] [id number] (test xlsz=[id number]) . Note: (test ofui=[id number]) Comment The Pap smear is a screening test designed to aid in the detection ofpremalignant and malignant conditions of the uterine cervix. It is notadiagnostic procedure and should not be used as the sole means ofdetectingcervical cancer. Both false-positive and false-negative reports dooccur. [id number] (test yksp=[id number]) Comment The HPV DNA reflex criteria were not met with this specimen resulttherefore, no HPV testing was performed. Chlamydia/GC [id number] 09:32:00* Test Item Value Reference Range Comments Chlamydia trachomatis, KITA (test czxq=[id number]) Negative Negative Neisseria gonorrhoeae, KITA (test chzk=[id number]) Negative Negative Culture, [id number] 08:33:00Specimen: UrineCollected: 11/12/2016 18:12 Status: Final Last Updated: 11/14/2016 08:33 Culture Result (Final) (Final) 11/13/16 No growth 24 hours 11/14/16 No growth 48 hours HIV [id number] 19:47:00* Test Item Value Reference Range Comments HIV 1/2 Antibody (test code=HIV1/2AB) Non-Reactive Non-Reactive HIV1/2 Antibody screen result indicates the absence of HIV1 and NSM7paeeoxwjr.However, A Non- Reactive screen result does not rule out exposure orinfection. If an acute infection is suspected, HIV RNA Quantitative is recommended. P24 Antigen (test code=P24) Non-Reactive Non-Reactive P24 Ag screen result indicates the absence of P24 antigen, which is anindicator of HIV-1 acute infection.However, A Non-Reactive screen does not rule out exposure or infection.If acute HIV-1 is suspected, HIV RNA Quantitative is recommended. HIV Rapid (test code=HIVR) Non-Reactive RPR, [id number] 05:09:00* Test Item Value Reference Range Comments RPR (test code=RPR) Non-Reactive Non-Reactive Rubella [id number] 05:09:00* Test Item Value Reference Range Comments Rubella IgG (test code=RUBELIGG) Immune Immune Blood Type and [id number] 21:41:00* Test Item Value Reference Range Comments ABO type (test code=ABO) A Rh Type (test code=RH) Positive Antibody Screen - [id number] 21:28:00* Test Item Value Reference Range Comments Antibody Screen (test code=ABSCR) Negative [id number] 19:21:00* Test Item Value Reference Range Comments Amphetamine (test code=AMPH) Negative Negative For diagnostic purposes only, positive results should always be assessedin conjunctionwith the patient's medical history,clinical examination and otherfindings.To fulfill legal requirements, a more specific alternate chemical methodmust be used inorder to obtain a Confirmed analytical result. GC/MS is the preferred confirmatory method. Barbiturates (test code=IMMANUEL) Negative Negative Benzodiazepine (test code=PHU) Negative Negative Cocaine (test code=COCA) Negative Negative Methadone (test code=MTHD) Negative Negative Opiates (test code=OPIA) Negative Negative PCP (test code=PCP) Negative Negative Propoxyphene (test code=PROPOX) Negative Negative THC (test code=THC) Negative Negative Urinalysis [id number] 19:07:00* Test Item Value Reference Range Comments Color (test code=COLOR) Yellow Yellow,Straw,Pl yellow Clarity (test code=CLAR) Clear Clear Specific Rhod[place] (test code=SPGR) 1.027 1.001-1.035 pH (test code=PH) 5.0 5.0-9.0 Ketone (test code=KET) 5 mg/dL Negative Glucose (test code=GLUCUR) Negative mg/dL Negative Protein (test code=PROT) Negative mg/dL Negative Bilirubin (test code=BILI) Negative mg/dL Negative Occult Blood (test code=UDOB) Negative Negative Urobilinogen (test code=UROB) 0.2 mg/dL 0.2-1.0 Nitrite (test code=NIT) Negative Negative Leuk Esterase (test code=LEUK) Small Negative Micros Exam (test code=MEXAM) Indicated Epithelial Cells (test code=EPI) 10-14 /LPF 0-30 WBC, Urine (test code=UWBC) 0-5 /HPF 0-5 RBC, Urine (test code=URBC) 0-3 /HPF 0-5 Mucous, Urine (test code=UMUC) Trace /HPF Bacteria (test code=BACT) Moderate /HPF Hep B Surface [id number] 19:07:00* Test Item Value Reference Range Comments Hep Bs Ag (test code=HBSAG) Nonreactive Non-Reactive CBC with [id number] 17:58:00* Test Item Value Reference Range Comments WBC (test code=WBC) 7.6 K/cumm 4.4-10.5 RBC (test code=RBC) 3.67 M/cumm 3.75-5.20 Hemoglobin (test code=HGB) 12.1 gm/dL 12.2-14.8 Hematocrit (test code=HCT) 34.2 % 36.5-44.4 MCV (test code=MCV) 93.3 fL 80-100 MCH (test code=MCH) 33.1 pg 27.0-32.5 MCHC (test code=MCHC) 35.4 g/dL 32.0-37.5 RDW (test code=RDW) 12.7 % 11.5-14.5 Platelet Count (test code=PLTCT) 210 K/cumm 140-440 MPV (test code=MPV) 9.4 fL Diff Method (test code=DIFFM) Auto Neutrophil (test code=NEUT) 58.4 % 36-70 Lymphocyte (test code=LYMPH) 34.6 % 12-44 Monocyte (test code=MONO) 4.0 % 0-11 Eosinophil (test code=EOS) 2.7 % 0-7 Basophil (test code=BASO) 0.3 % 0-2 Neutro Abs (test code=ANEUT) 4.4 K/cumm 1.6-7.4 Lymph Abs (test code=ALYMPH) 2.6 K/cumm 0.5-4.6 Evangeline Abs (test code=AMONO) 0.3 K/cumm 0.0-1.2 Eos Abs (test code=AEOS) 0.21 K/cumm 0.00-0.74 Baso Abs (test code=ABASO) 0.0 K/cumm 0.00-0.21 US [id number] 00:42:14OB ULTRASOUNDAfter-hours services performed at 0019 hours.LOCATION: R16.INDICATION: Vaginal bleeding in a patient.COMPARISON: None.TECHNIQUE: Transabdominal and transvaginal grayscale and colorsonographic imaging of the pelvis with Doppler evaluation of the ovariesand M-mode interrogation of the heart.FINDINGS:The uterus measures 12.5 cm x 6.1 cm x 8.2 cm. There is a singleintrauterine gestational sac with a yolk sac and a pole. Thecrown-rump length is 8.3 mm, and the heart rate is 140 bpm. A 2.7cm x 1.3 cm x 2.7 cm hypoechoic area adjacent to the gestational saclikely represents a subchorionic hemorrhage.The right ovary measures 3.3 cm x 1.5 cm x 3.0 cm, and the left ovarymeasures 4.9 cm x 3.4 cm x 4.4 cm. A 3.9 cm x 2.8 cm x 3.4 cm complexcystic lesion in the left ovary may represent a corpus luteum. There isno solid ovarian mass. Ovarian Doppler waveforms are normal bilaterally.IMPRESSION:Viable intrauterine fetus with an estimated gestational age of 6 weeks 6days by crown-rump length. Small to moderate-sized subchorionichemorrhage.US OB 1ST TRIMESTER, [id number] 00:42:14OB ULTRASOUNDAfter-hours services performed at 0019 hours.LOCATION: R16.INDICATION: Vaginal bleeding in a patient.COMPARISON: None.TECHNIQUE: Transabdominal and transvaginal grayscale and colorsonographic imaging of the pelvis with Doppler evaluation of the ovariesand M-mode interrogation of the heart.FINDINGS:The uterus measures 12.5 cm x 6.1 cm x 8.2 cm. There is a singleintrauterine gestational sac with a yolk sac and a pole. Thecrown-rump length is 8.3 mm, and the heart rate is 140 bpm. A 2.7cm x 1.3 cm x 2.7 cm hypoechoic area adjacent to the gestational saclikely represents a subchorionic hemorrhage.The right ovary measures 3.3 cm x 1.5 cm x 3.0 cm, and the left ovarymeasures 4.9 cm x 3.4 cm x 4.4 cm. A 3.9 cm x 2.8 cm x 3.4 cm complexcystic lesion in the left ovary may represent a corpus luteum. There isno solid ovarian mass. Ovarian Doppler waveforms are normal bilaterally.IMPRESSION:Viable intrauterine fetus with an estimated gestational age of 6 weeks 6days by crown-rump length. Small to moderate-sized subchorionichemorrhage.Antibody Screen - [id number] 23:30:00* Test Item Value Reference Range Comments Antibody Screen (test code=ABSCR) Negative BHCG, Serum, [id number] 23:08:00* Test Item Value Reference Range Comments B hCG, Quant (test code=BHCGQT) 04250 mIU/mL Weeks of Gestation Ranges (mIU/mL)3 weeks 5.40 - 72.04 weeks 10.2 - 7085 weeks 217 - 97104 weeks 152 - 957273 weeks 4059 - 7313838 weeks 15088 - 4609512 weeks 06994 - 88781021 weeks 66538 - 22570281 weeks 20340 - 62399885 weeks 21188 - 4815881 weeks 46904 - 4571253 weeks 8904 - 0845253 weeks 8240 - 3150511 weeks 9649 - 97758 CBC with [id number] 23:05:00* Test Item Value Reference Range Comments WBC (test code=WBC) 10.2 K/cumm 4.4-10.5 RBC (test code=RBC) 4.40 M/cumm 3.75-5.20 Hemoglobin (test code=HGB) 13.6 gm/dL 12.2-14.8 Hematocrit (test code=HCT) 41.2 % 36.5-44.4 MCV (test code=MCV) 93.8 fL 80-100 MCH (test code=MCH) 30.9 pg 27.0-32.5 MCHC (test code=MCHC) 33.0 g/dL 32.0-37.5 RDW (test code=RDW) 14.6 % 11.5-14.5 Platelet Count (test code=PLTCT) 266 K/cumm 140-440 MPV (test code=MPV) 9.9 fL Diff Method (test code=DIFFM) Auto Neutrophil (test code=NEUT) 52.1 % 36-70 Lymphocyte (test code=LYMPH) 39.9 % 12-44 Monocyte (test code=MONO) 4.7 % 0-11 Eosinophil (test code=EOS) 2.7 % 0-7 Basophil (test code=BASO) 0.6 % 0-2 Neutro Abs (test code=ANEUT) 5.3 K/cumm 1.6-7.4 Lymph Abs (test code=ALYMPH) 4.1 K/cumm 0.5-4.6 Evangeline Abs (test code=AMONO) 0.5 K/cumm 0.0-1.2 Eos Abs (test code=AEOS) 0.28 K/cumm 0.00-0.74 Baso Abs (test code=ABASO) 0.1 K/cumm 0.00-0.21 Blood Type and [id number] 23:02:00* Test Item Value Reference Range Comments ABO type (test code=ABO) A Rh Type (test code=RH) Positive
== END 2018-08-10 00:07 | disposition home or self-care (01) ==
LOC: ER 21:19
DX: M54.12 Radiculopathy, cervical region (principal); G44.229 Chronic tension-type headache, not intractable
CPT/HCPCS: 99283